=== PATIENT | female | born 1965 | race Caucasian/White ===

== ENCOUNTER 2023-02-17 08:52 | Emergency (ER) | payer BC ==
[~2023-02-17] VITALS: Ht 167.6 cm; Wt 77.0 kg
[2023-02-17 09:00] VITALS: BP 154/80; PULSE 95; RESP 18; TEMP 98.3; O2SAT 98
== END 2023-02-17 13:22 | disposition home or self-care (01) ==
LOC: ER 08:52
DX: R07.89 Other chest pain (principal); Z88.0 Allergy status to penicillin; Z98.890 Other specified postprocedural states; V49.9XXA Car occupant (driver) (passenger) injured in unspecified traffic accident, initial encounter; Y93.89 Activity, other specified; Y92.89 Other specified places as the place of occurrence of the external cause; Y99.8 Other external cause status
CPT/HCPCS: 71046; 93005; 99283